=== PATIENT | female | born 1995 | race Caucasian/White ===

== ENCOUNTER 2019-09-04 09:13 | Emergency (ER) | payer MEDICAID ==
[2019-09-04 11:01] LABS: APPEARANCE,URINE SLIGHTLY-CLOUDY; BILIRUBIN,URINE NEGATIVE (NEGATIVE); COLOR,URINE YELLOW; GLUCOSE, URINE NEGATIVE (NEGATIVE); KETONES,URINE NEGATIVE (NEGATIVE); LEUKOCYTE ESTERASE,URINE SMALL (NEGATIVE); NITRITE,URINE NEGATIVE (NEGATIVE); PROTEIN,URINE NEGATIVE (NEGATIVE); URINE SPECIFIC GRAVITY 1.013; UROBILINOGEN,URINE NEGATIVE mg/dL (<2.0)
[2019-09-04 11:17] LABS: ABSOLUTE EOSINOPHILS # (AUTO) 0.1 10^3/uL (0.0-0.6); ABSOLUTE LYMPHOCYTES (AUTO) 0.9 10^3/uL (0.5-4.7); ABSOLUTE MONOCYTES (AUTO) 0.2 10^3/uL (0.1-1.4); ABSOLUTE NEUT (AUTO) 2.9 10^3/uL (1.7-8.2); BASOPHILS % (AUTO) 0.3 % (0-2); EOSINOPHILS % (AUTO) 1.3 % (0-6); HEMATOCRIT 36.5 % (36.0-47.0); HEMOGLOBIN 12.4 g/dL (12.0-15.5); LYMPHOCYTES % (AUTO) 21.4 % (13-45); MEAN CORPUSCULAR HGB CONC 33.9 g/dL (32.0-36.0); MEAN CORPUSCULAR VOLUME 91 fl (80-97); PLATELET COUNT 196 10^3/uL (150-450); RED BLOOD COUNT 3.99 10^6/uL (3.72-5.28); RED CELL DISTRIBUTION WIDTH 12.7 % (11.5-14.0); TOTAL CELLS COUNTED % (AUTO) 100 %; WHITE BLOOD COUNT 4.1 10^3/uL (4.0-10.5)
--- NOTE | 2019-09-04 12:47 | RADIOLOGY REPORT (SQ) ---
EXAM DESCRIPTION: U/S OB TRANSVAGINAL W/O DOP IMAGES COMPLETED DATE/TIME: 09/04/2019 12:30 pm REASON FOR STUDY: vaginal bleeding COMPARISON: None. TECHNIQUE: Transvaginal static and realtime grayscale images acquired of the pelvis. Additional conchita cted spectral and color Doppler images recorded. All images stored on PACs. CLINICAL AGE: 6 weeks 5 days bHC,826 LIMITATIONS: None. FINDINGS: UTERUS: No masses. No anomalies. GESTATIONAL SAC: Normal shape. YOLK SAC: Present. POLE: None present. RIGHT ADNEXA: Normal ovary with normal vascular flow. No adnexal free fluid. No adnexal masses. LEFT ADNEXA: Normal ovary with normal vascular flow. No adnexal free fluid. No adnexal masses. FREE FLUID: None. OTHER: No other significant finding. IMPRESSION: POSSIBLE EARLY INTRAUTERINE . BHCG LEVEL APPROPRIATE FOR ENDOMETRIAL FINDINGS. CONSIDER F/U BHCG AND/OR ULTRASOUND FOR VERIFICATION AND TO EXCLUDE ECTOPIC . Trimester of : First trimester - 0 to 13 weeks. TECHNICAL DOCUMENTATION: JOB ID: [id number] 2010 [employer]- All Rights Reserved Reading location - IP/workstation name: [email or web address]
--- NOTE | 2019-09-04 14:12 | ER Document Report ---
ED General - General Chief Complaint: Vaginal Bleeding Stated Complaint: VAGINAL BLEEDING Time Seen by Provider: 09/04/19 11:12 Primary Care Provider: DAQUAN LOONEY MD [Primary Care Provider] - Follow up as needed TRAVEL OUTSIDE OF THE [place] 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 And this morning she had some mild cramping suprapubic area and lower mid back area. She denies fever chills. She denies nausea vomiting. She denies dysuria. She does not know her blood type. She has had no care during this . - Related Data Allergies/Adverse Reactions: tobramycin [Tobramycin] Adverse Reaction (Verified 09/04/19 10:31) Past Medical History - General Information source: Patient - Social History Smoking Status: Former Smoker Lives with: Family Family History: Reviewed & Not Pertinent Patient has homicidal ideation: No - Past Medical History Cardiac Medical History: Denies: Hx Coronary Artery Disease, Hx Heart Attack, Hx Hypertension Pulmonary Medical History: Denies: Hx Asthma, Hx Bronchitis, Hx COPD, Hx Pneumonia Neurological Medical History: Denies: Hx Cerebrovascular Accident, Hx Seizures Musculoskeletal Medical History: Denies Hx Arthritis Past Surgical History: Denies: Hx Pacemaker - Immunizations Immunizations up to date: No Hx Diphtheria, Pertussis, Tetanus Vaccination: No - uncertain Review of Systems - Review of Systems Notes: Constitutional: Negative for fever. HENT: Negative for sore throat. Eyes: Negative for visual changes. Cardiovascular: Negative for chest pain. Respiratory: Negative for shortness of breath. Gastrointestinal: Negative for abdominal pain, vomiting or diarrhea. Genitourinary: As per HPI. Musculoskeletal: Negative for back pain. Skin: Negative for rash. Neurological: Negative for headaches, weakness or numbness. 10 point ROS negative except as marked above and in HPI. Physical Exam - Vital signs Vitals: Temp Pulse Resp BP Pulse Ox 98.8 F 105 H 14 135/93 H 100 09/04/19 09:21 09/04/19 09:21 09/04/19 09:21 09/04/19 09:21 09/04/19 09:21 - Notes Notes: GENERAL: Female patient approximately stated age appearing in no acute distress. SKIN: Good turgor no rashes. HEAD: Normocephalic atraumatic. EYES: PERRLA. EOMI. Conjunctivae and sclerae clear. EARS: CANALS AND TMS CLEAR. NOSE: CLEAR. MOUTH: Moist mucosa. Good dentition. No stridor or edema. No drooling. NECK: Supple. No masses or thyromegaly. No adenopathy. Carotids 2+ without bruits. No JVD. BACK: Symmetrical without tenderness. CHEST: Respirations unlabored. Breath sounds clear and symmetrical. HEART: Regular rhythm. No murmur gallop or rub. ABDOMEN: Soft nontender without masses, organomegaly or rebound. Bowel sounds normally active. No bruits. Pelvic: Normal external genitalia and hair distribution. There is moderate amount of blood in the vaginal vault. Cervix is posterior and osseous closed. Uterus is enlarged consistent with dates. No adnexal masses. Minimal tenderness over the uterus. No cervical motion tenderness. EXTREMITIES: No edema. No calf tenderness. Cap refill less than 1.5 seconds. Dorsalis pedis and posterior tibial pulses 3+ and symmetrical. NEUROLOGICAL: GCS 15. Alert and oriented x3. Normal gait. Fluent speech. Cranial nerves II through XII intact. Sensorimotor and cerebellar normal. Normal tone. PSYCHIATRIC: Appropriate affect. Course - Re-evaluation Re-evalutation: 09/04/19 14:13 Ultrasound suggest very early IUP. Cervical loss is closed on pelvic exam although she has a moderate amount of bleeding. She is hemodynamically stable and afebrile with a normal hemoglobin. She is Rh+. Implications of bleeding in early discussed with patient. She is sent home with first trimester bleeding precautions. She will return here for recheck in 48 hours may return sooner for new will worsening symptoms. - Vital Signs Vital signs: Temp Pulse Resp BP Pulse Ox 98.8 F 105 H 14 135/93 H 100 09/04/19 09:21 09/04/19 09:21 09/04/19 09:21 09/04/19 09:21 09/04/19 09:21 - Laboratory Result Diagrams: 09/04/19 10:45 Laboratory results interpreted by me: 09/04/19 09/04/19 10:45 10:45 Beta HCG, Quant 12018.00 H Urine Blood LARGE H Ur Leukocyte Esterase SMALL H Urine HCG, Qual POSITIVE H Discharge - Discharge Clinical Impression: Vaginal bleeding affecting early , Threatened miscarriage in early Condition: Stable Disposition: HOME, SELF-CARE Instructions: Bleeding During Early (H), [facility] Doctors, Repeat Blood Test ([facility]), Threatened Miscarriage ([facility]) Additional Instructions: Return here immediately for new or worsening symptoms. Return here or to your WOUND TREATMENT RN doctor in 48 hours for recheck. Referrals: DAQUAN LOONEY MD [Primary Care Provider] - Follow up as needed
[2019-09-04 14:16] LABS: RBCS (WET MOUNT) 4+ RBCS SEEN; T.VAGINALIS (WET MOUNT) NO TRICHOMONAS SEEN; WBCS (WET MOUNT) RARE WBCS SEEN; YEAST (WET MOUNT) NO YEAST SEEN
[2019-09-04 14:33] VITALS: BP 138/86
[2019-09-04 15:49] LABS: CHLAM PCR NOT DETECTED (NOT DETECT)
== END 2019-09-04 14:29 | disposition home or self-care (01) ==
LOC: ER 09:13
DX: O20.0 Threatened abortion (principal); O26.899 Other specified pregnancy related conditions, unspecified trimester; R10.30 Lower abdominal pain, unspecified; R25.2 Cramp and spasm; Z87.891 Personal history of nicotine dependence; Z3A.00 Weeks of gestation of pregnancy not specified
CPT/HCPCS: 36415; 76817; 81001; 81025; 84702; 85025; 86900; 86901; 87210; 87491; 87591; 99284